=== PATIENT | male | born 1995 | race Hispanic/Latino ===

== ENCOUNTER 2023-12-06 16:42 | Emergency (ER) | payer BC ==
[2023-12-06] MEDS ORDERED: Boostrix 0.5 ML (Tdap) VIAL (>/=7 yrs of age) ONE (16:58)
== END 2023-12-06 17:13 | disposition home or self-care (01) ==
LOC: NAV ERS 16:42
DX: T63.2X1A Toxic effect of venom of scorpion, accidental (unintentional), initial encounter (principal)
CPT/HCPCS: 90471; 90715; 99282